=== PATIENT | male | born 1960 | race Caucasian/White ===

== ENCOUNTER 2020-08-10 07:02 | Outpatient (CLI) | payer BC ==
--- NOTE | 2020-08-10 08:08 | ULT ---
ULTRASOUND ABDOMEN: HISTORY: Abdominal pain FINDINGS: The liver, spleen, gallbladder, kidneys and visualized portions of the pancreas, aorta and IVC appear normal. The common duct measures 3 mm in diameter. No free fluid is seen. IMPRESSION: No significant abnormalities are identified.
== END 2020-08-10 07:03 | disposition home or self-care (01) ==
LOC: BICULT 07:02
PROVIDERS: ATTEND Internal Medicine
DX: R94.5 Abnormal results of liver function studies (principal)
CPT/HCPCS: 93975

== ENCOUNTER 2021-05-09 07:53 | Outpatient (CLI) | payer BC | END 2021-05-09 07:54 | disposition home or self-care (01) | LOC: BICRAD 07:53 | PROVIDERS: ATTEND Internal Medicine Rheumatology | DX: M75.112 Incomplete rotator cuff tear or rupture of left shoulder, not specified as traumatic (principal); M75.111 Incomplete rotator cuff tear or rupture of right shoulder, not specified as traumatic; M19.011 Primary osteoarthritis, right shoulder; M25.711 Osteophyte, right shoulder ==

== ENCOUNTER 2023-09-08 08:25 | Outpatient (CLI) | payer BC | END 2023-09-08 08:26 | disposition home or self-care (01) | LOC: SCSRAD 08:25 | PROVIDERS: ATTEND Orthopaedic Surgery | DX: M75.111 Incomplete rotator cuff tear or rupture of right shoulder, not specified as traumatic (principal) | CPT/HCPCS: 71046 ==

== ENCOUNTER 2025-08-30 08:59 | Outpatient (CLI) | payer OTHER | END 2025-08-30 09:00 | disposition home or self-care (01) | LOC: BICCT 08:59 | PROVIDERS: ATTEND Internal Medicine | DX: Z13.6 Encounter for screening for cardiovascular disorders (principal); E10.9 Type 1 diabetes mellitus without complications; I10 Essential (primary) hypertension; E78.5 Hyperlipidemia, unspecified; I25.10 Atherosclerotic heart disease of native coronary artery without angina pectoris | CPT/HCPCS: 75571 ==